=== PATIENT | female | born 1990 | race Caucasian/White ===

== ENCOUNTER 2020-04-20 02:34 | Inpatient (IN) | payer BC ==
[~2020-04-20] VITALS: Ht 157.5 cm; Wt 225.7 kg
[2020-04-20] MEDS ORDERED: LISINOPRIL10 MG PO (02:45)
[2020-04-20] MEDS ORDERED: LOPRESSOR25 MG PO (02:45)
[2020-04-20 03:14] LABS: BASOPHILS 0.1 % (0-2); EOSINOPHILS 0 % (0-7); HEMATOCRIT 33.9 % (36.0-48.0); HEMOGLOBIN 10.7 g/dL (12-16); IMMATURE GRANULOCYTES 0.3 % (0-5); MCH 28.5 pg (26.0-34.0); MCHC 31.6 g/dL (31.0-37.0); MCV 90.2 fL (80.0-100.0); MEAN PLATELET VOLUME 9.7 fL (7.4-10.4); NEUTROPHILS 94.6 % (40-80); PLATELET COUNT 164 10x3/uL (130-400); RBC 3.76 10x6/uL (4.00-5.40); RDW 14.2 % (11.5-14.5); WBC 10.2 10x3/uL (4.8-10.8)
[2020-04-20 03:22] LABS: ANION GAP 13.5 mmol/L (8-16); CARBON DIOXIDE 23.2 mmol/L (21.0-32.0); CREATININE - SERUM 1.2 mg/dL (0.6-1.3); POTASSIUM - SERUM 3.7 mmol/L (3.5-5.1)
[2020-04-20 03:23] LABS: APTT 30.4 SECONDS (22.8-39.4); INR 1.29 (0.85-1.17)
[2020-04-20 03:25] LABS: HCG SERUM NEGATIVE (NEGATIVE)
[2020-04-20 03:26] LABS: D-DIMER-QUANTITATIVE 2.62 ug/mLFEU (0.20-0.54)
[2020-04-20 03:39] LABS: ALBUMIN 3.1 g/dL (3.4-5.0); BILIRUBIN - TOTAL 1.36 mg/dL (0.2-1.3); PROTEIN - SERUM 6.7 g/dL (6.4-8.2); THYROID STIMULATING HORMONE 0.86 uIU/mL (0.36-3.74)
--- NOTE | 2020-04-20 04:30 | NUR ---
PT HAS 2+ PITTING EDEMA TO L LOWER LEG AND NON PITTING EDEMA TO R LOWER LEG
--- NOTE | 2020-04-20 05:00 | NUR ---
PT ABLE TO AMBULATE TO BATHROOM WITHOUT ASSISTANCE.
[2020-04-20 07:49] VITALS: BP 133/80; BMI 86.2
--- NOTE | 2020-04-20 08:00 | NUR ---
ASSESSMENT PER FLOWSHEET. PATIENT ORIENTATED TO ROOM. CALL LIGHT WITHIN REACH, BED LOW POSITION, DENIES ANY NEEDS AT THIS TIME.
[2020-04-20 09:16] VITALS: BP 126/70
[2020-04-20 13:17] VITALS: BP 117/59
--- NOTE | 2020-04-20 16:00 | NUR ---
INCENTIVE SPIROMETER TEACHING COMPLETE. PATIENT ABLE TO DEMONSTRATE. FALL PREVENTION MEASURES IN PLACE. BED IN LOW POSITION, CALL LIGHT IN REACH, PATIENT DENIES ANY NEEDS AT THIS TIME.
--- NOTE | 2020-04-20 16:13 | NUR ---
PATIENT IS UNABLE TO TOLLERATE SCD'S.
[2020-04-20 16:50] VITALS: BP 104/47
--- NOTE | 2020-04-20 18:03 | NUR ---
PATIENT VERY ANXIOUS BILATERAL IV TENDER, DCD PER PATIENT REQUEST. IV SITED TO RIGHT FOREARM X 1 STICK 20G. ASEPTIC TECH.
--- NOTE | 2020-04-20 18:21 | NUR ---
REMAINS WITHOUT CHANGE. CONT PLAN OF CARE
--- NOTE | 2020-04-20 19:31 | NUR ---
PATIENT RESTING IN BED WITH NO S/S OF DISTRESS. DENIES NEEDS AT THIS TIME. BED IN LOWEST POSITION AND CALL LIGHT WITHIN REACH. ENCOURAGED THE PATIENT TO CALL IF SHE HAS NEEDS. WILL CONTINUE TO MONITOR.
[2020-04-20 20:15] VITALS: BP 108/43
--- NOTE | 2020-04-20 21:29 | NUR ---
ADMINISTERED MEDS PER ORDERS. PATIENT DENIES OTHER NEEDS. WILL CONTINUE TO MONITOR.
[2020-04-21 01:11] VITALS: BP 115/49
[2020-04-21 04:35] VITALS: BP 136/56
[2020-04-21 06:51] LABS: BASOPHILS 0.1 % (0-2); EOSINOPHILS 0.2 % (0-7); HEMATOCRIT 30.4 % (36.0-48.0); HEMOGLOBIN 9.4 g/dL (12-16); IMMATURE GRANULOCYTES 0.5 % (0-5); LYMPHOCYTES 3.9 % (15-50); MCHC 30.9 g/dL (31.0-37.0); MCV 90.5 fL (80.0-100.0); MONOCYTES 3.5 % (2-11); NEUTROPHILS 91.8 % (40-80); PLATELET COUNT 169 10x3/uL (130-400); RBC 3.36 10x6/uL (4.00-5.40); RDW 14.8 % (11.5-14.5)
[2020-04-21 06:59] LABS: WBC 13.2 10x3/uL (4.8-10.8)
[2020-04-21 07:02] LABS: ANION GAP 9.9 mmol/L (8-16); CALCIUM 7.9 mg/dL (8.5-10.1); CARBON DIOXIDE 24.8 mmol/L (21.0-32.0); CREATININE - SERUM 1.1 mg/dL (0.6-1.3); MAGNESIUM - SERUM 1.7 mg/dL (1.8-2.4); PHOSPHOROUS 2.6 mg/dL (2.5-4.9); POTASSIUM - SERUM 3.7 mmol/L (3.5-5.1)
[2020-04-21 08:30] VITALS: BP 126/69
--- NOTE | 2020-04-21 08:55 | NUR ---
SHE IS ALERT, WALKING TO THE BATHROOM WITHOUT HELP. HER LEFT LOWER LEG HAS LYMPHEDEMA WITH REDNESS, AND SMALL BLITERS. THE RIGHT LEG HAS SOME REDNESS AROUND THE ANKLE AREA. I COLLECTED A URINE SPECIMEN FROM HER THIS MORNING. THE CALL LIGHT IS WITHIN REACH. DENIES ANY PAIN OR NEEDS AT THIS TIME.
[2020-04-21 09:35] LABS: BILIRUBIN NEGATIVE (NEGATIVE); GLUCOSE NEGATIVE (NEGATIVE); KETONE NEGATIVE (NEGATIVE); NITRITE NEGATIVE (NEGATIVE); UROBILINOGEN NORMAL (NORMAL)
[2020-04-21 09:42] LABS: BACTERIA FEW /hpf (NEGATIVE); EPITHELIAL CELLS 0-5 /hpf (0-5); RED CELLS - URINE 0-5 /hpf (0-5); WHITE CELLS - URINE 0-5 /hpf (NEGATIVE)
[2020-04-21 12:21] VITALS: BP 117/61
[2020-04-21 17:48] VITALS: BP 120/61
--- NOTE | 2020-04-21 19:30 | NUR ---
PATIENT RESTING IN BED WITH NO S/S OF DISTRESS AND DENIES NEEDS AT THIS TIME. BED IN LOWEST POSITION AND CALL LIGHT WITHIN REACH. ENCOURAGED THE PATIENT TO CALL IF SHE HAS NEEDS. WILL CONTINUE TO MONITOR.
[2020-04-21 20:08] VITALS: BP 107/41
[2020-04-22 04:00] VITALS: BP 120/65
[2020-04-22 05:20] LABS: BASOPHILS 0.1 % (0-2); EOSINOPHILS 0.5 % (0-7); HEMATOCRIT 29.4 % (36.0-48.0); HEMOGLOBIN 9.3 g/dL (12-16); IMMATURE GRANULOCYTES 0.5 % (0-5); LYMPHOCYTES 7.1 % (15-50); MCH 28.2 pg (26.0-34.0); MCHC 31.6 g/dL (31.0-37.0); MCV 89.1 fL (80.0-100.0); MEAN PLATELET VOLUME 10.6 fL (7.4-10.4); MONOCYTES 5.3 % (2-11); NEUTROPHILS 86.5 % (40-80); PLATELET COUNT 166 10x3/uL (130-400); RDW 14.7 % (11.5-14.5); WBC 12.2 10x3/uL (4.8-10.8)
[2020-04-22 05:35] LABS: CALC OSMOLALITY 272 mosm/kg (275-300); CALCIUM 8.1 mg/dL (8.5-10.1); CARBON DIOXIDE 25.7 mmol/L (21.0-32.0); CHLORIDE - SERUM 103 mmol/L (98-107); CREATININE - SERUM 0.9 mg/dL (0.6-1.3); GLUCOSE 104 mg/dL (74-106); MAGNESIUM - SERUM 1.9 mg/dL (1.8-2.4); PHOSPHOROUS 2.2 mg/dL (2.5-4.9); POTASSIUM - SERUM 3.6 mmol/L (3.5-5.1); SODIUM 135 mmol/L (136-145); UREA NITROGEN 22 mg/dL (7-18); eGFR NON AFRICAN AMERICAN 77 mL/min (90-120)
--- NOTE | 2020-04-22 07:35 | NUR ---
PT LYING IN BED, NO S/SX OF DISTRESS, IV IN RT FA INFILTRATED, PT STATED SHE IS A VERY HARD STICK AND HAS TO HAVE ABX, PLACED ORDER FOR VASCULAR ACCESS NURSE. ASSISTED PT WITH MOVING LEFT LEG OVER THIS IS DIFFICULT FOR PT TO DO ON HER OWN. LUNGS CTA, BOWEL SOUBDS HYPOACTIVE. PT STATED LAST BD WAS LAST NIGHT AND SMALL. NO OTHER NEEDS AT THIS TIME, CONTINUE WITH PLAN OF CARE
[2020-04-22 09:12] VITALS: BP 127/65
--- NOTE | 2020-04-22 10:36 | NUR ---
I have reviewed this patient and I concur with the Shift Assessment completed by the Licensed Practical Nurse today this shift.
--- NOTE | 2020-04-22 11:20 | NUR ---
LEFT LOWER LEG IS EDEMATOUS AND RED. VANC HAS BEEN ORDERED. RECOMMENDED KEEPING LEG ELEVATED. WOUND CARE MONITORING.
[2020-04-22 12:38] VITALS: BP 125/61
[2020-04-22 13:42] VITALS: BMI 84.2
[2020-04-22 16:55] VITALS: BP 120/54
--- NOTE | 2020-04-22 19:24 | NUR ---
ASSISTED PATIENT TO AND FROM BED PER HER REQUEST. PATIENT DENIES OTHER NEEDS AT THIS TIME. BED IN LOWEST POSITION AND CALL LIGHT WITHIN REACH. ENCOURAGED THE PATIENT TO CALL IF SHE HAS NEEDS. WILL CONTINUE TO MONITOR.
[2020-04-22 20:00] VITALS: BP 115/62
[2020-04-22 23:23] VITALS: BP 127/69
--- NOTE | 2020-04-23 | NUR ---
ADMINISTERED MEDS PER ORDERS. PATIENT DENIES OTHER NEEDS. WILL CONTINUE TO MONITOR.
[2020-04-23 04:00] VITALS: BP 121/60
[2020-04-23 05:59] LABS: BASOPHILS 0.1 % (0-2); EOSINOPHILS 0.8 % (0-7); HEMATOCRIT 28.2 % (36.0-48.0); HEMOGLOBIN 8.7 g/dL (12-16); IMMATURE GRANULOCYTES 1.7 % (0-5); LYMPHOCYTES 8.9 % (15-50); MCH 27.6 pg (26.0-34.0); MCHC 30.9 g/dL (31.0-37.0); MCV 89.5 fL (80.0-100.0); MONOCYTES 11.5 % (2-11); PLATELET COUNT 170 10x3/uL (130-400); RBC 3.15 10x6/uL (4.00-5.40); WBC 10.3 10x3/uL (4.8-10.8)
[2020-04-23 06:01] LABS: CALC OSMOLALITY 274 mosm/kg (275-300); CARBON DIOXIDE 25.5 mmol/L (21.0-32.0); CHLORIDE - SERUM 104 mmol/L (98-107); CREATININE - SERUM 0.8 mg/dL (0.6-1.3); GLUCOSE 91 mg/dL (74-106); MAGNESIUM - SERUM 2.1 mg/dL (1.8-2.4); PHOSPHOROUS 2.3 mg/dL (2.5-4.9); POTASSIUM - SERUM 3.5 mmol/L (3.5-5.1); SODIUM 137 mmol/L (136-145); eGFR NON AFRICAN AMERICAN 89 mL/min (90-120)
[2020-04-23 06:03] LABS: UREA NITROGEN 15 mg/dL (7-18)
--- NOTE | 2020-04-23 07:21 | NUR ---
PT LYING IN BED AWAKE WATCHING TELEVISION, NO S/SX OF DISTRESS, PT LEFT LEG RED AND SWOLLEN HAS SOME DRAINAGE TODAY, WILL CONTINUE TO MONITOR. NO NEEDS VOICED, CL IN REACH
[2020-04-23 09:01] VITALS: BP 130/69
--- NOTE | 2020-04-23 09:40 | NUR ---
PT UP WITH PHYSICAL THERAPY, REQUESTED PAIN MEDICATION, ADMINISTERED PRN PAIN MEDICATION VIA IV, NO OTHER ENEDS VOICED AT TIHS TIME, CL IN REACH BED IN LOWEST POSITION, CONTINUE WITH PLAN OF CARE
[2020-04-23 11:59] VITALS: BP 123/70
[2020-04-23 16:41] VITALS: BP 149/50
[2020-04-23 17:20] VITALS: BP 114/76
--- NOTE | 2020-04-23 17:54 | NUR ---
OT NOTE: PT SITTING IN CHAIR. PT COMPLETED BUE AROM EXERCISES. PT EASILY FATIGUED WITH MINIMAL EXERTION. PT COMPLETED SITTING BALANCE WITH CGA. PT COMPLETED FACE/HAND HYGIENE WITH SETUP. PT STATED SHE COOKS AT HOME AND HAS MORE ENERGY WHEN HOME. PT FAMILY MEMBER STATED SHE IS NOT VERY ACTIVE AT HOME. [phone] THANK YOU,EMILY JEWELL
--- NOTE | 2020-04-23 19:22 | NUR ---
I have reviewed this patient and I concur with the Shift Assessment completed by the Licensed Practical Nurse today this shift.
--- NOTE | 2020-04-23 19:30 | NUR ---
PT SITTING UP IN BED WITHOUT DISTRESS, AOX4. RIGHT UPPER ARM ML INFUSING NS @ 75. BLE SWELLING, LEFT MORE THAN RIGHT. LEFT LEG RED AND WARM TO TOUCH. PROPPED ON PILLOW. DENIES PAIN OR NEEDS AT THIS TIME. CL IN REACH, WILL CTM
[2020-04-23 20:00] VITALS: BP 107/48
[2020-04-24] VITALS: BP 120/63
--- NOTE | 2020-04-24 00:30 | NUR ---
PT ASSISTED UP TO BATHROOM AND BACK TO BED. GAVE TYLENOL FOR BURNING PAIN IN LEFT FOOT 01/25.
[2020-04-24 04:00] VITALS: BP 121/63
[2020-04-24 06:05] LABS: BASOPHILS 0.3 % (0-2); EOSINOPHILS 1.2 % (0-7); HEMATOCRIT 27.2 % (36.0-48.0); HEMOGLOBIN 8.5 g/dL (12-16); LYMPHOCYTES 10.1 % (15-50); MCH 27.7 pg (26.0-34.0); MCHC 31.3 g/dL (31.0-37.0); MCV 88.6 fL (80.0-100.0); MEAN PLATELET VOLUME 11.2 fL (7.4-10.4); MONOCYTES 10.8 % (2-11); NEUTROPHILS 70.6 % (40-80); PLATELET COUNT 190 10x3/uL (130-400); RBC 3.07 10x6/uL (4.00-5.40); RDW 15.3 % (11.5-14.5); WBC 11.8 10x3/uL (4.8-10.8)
[2020-04-24 06:17] LABS: CALC OSMOLALITY 272 mosm/kg (275-300); CALCIUM 8.1 mg/dL (8.5-10.1); CARBON DIOXIDE 25.3 mmol/L (21.0-32.0); CHLORIDE - SERUM 104 mmol/L (98-107); CREATININE - SERUM 0.7 mg/dL (0.6-1.3); GLUCOSE 94 mg/dL (74-106); MAGNESIUM - SERUM 2.2 mg/dL (1.8-2.4); PHOSPHOROUS 2.3 mg/dL (2.5-4.9); POTASSIUM - SERUM 3.5 mmol/L (3.5-5.1); SODIUM 137 mmol/L (136-145); eGFR NON AFRICAN AMERICAN > 90 mL/min (90-120)
[2020-04-24 06:18] LABS: UREA NITROGEN 11 mg/dL (7-18)
--- NOTE | 2020-04-24 07:52 | NUR ---
PT LYING IN BED ASLEEP, NO S/SX OF DISTRESS, PT LEFT LEG IS VERY RED AND SWOLLEN TODAY, HAS SOME DRAINAGFE ON INNER SIDE/ MIDLINE IN RET UPPER ARM PATENT, CDI, LUNGS CTA. NO NEEDS VOICED, CONTINUE WITH PLAN OF CARE
[2020-04-24 08:38] VITALS: BP 127/63
[2020-04-24 12:41] VITALS: BP 137/76
--- NOTE | 2020-04-24 14:08 | NUR ---
OT NOTE: PT VERY TEARFUL AT START OF SESSION.. STATES THAT SHE KNOWS IT IS GOING TO BE VERY PAINFUL. ATTEMPTED EOB SITTING ON OPPOSITE SIDE TODAY AND PT DID BETTER. CONT TO REQUIRE MAX ASSIST TO MOVE L LEG..HOWEVER, SHE IS ABLE TO USE GRAB BARS TO HELP IN MOVING REST OF BODY.. SITTING BALANCE GOOD; SIT TO STAND WITH MIN ASSIST X 2; AMB APPROX 5 FT FROM BED TO CHAIR WITH CGA; TRANSFER WITH CGA; TOLERATED SITTING UP IN CHAIR APPROX 30 MIN.. REPORTED BURNING TO BACK OF L LE; BACK TO BED WITH MAX ASSIST FOR L LE..ELEVATED L LEG ON PILLOWS.. CHRISTIANNE FARRAR, OTR/L [phone]
[2020-04-24 17:00] VITALS: BP 140/78
--- NOTE | 2020-04-24 17:23 | NUR ---
OT NOTE: PT COMPLETED SUPINE TO SIT WITH TOTAL A WITH LLE. PT REQUIRED CGA/SBA FOR SIT TO STAND . PT COMPLETED ADL MOB WITH HH A . PT REQUIRED TOTAL A TO FIDENCIO SOCKS. [phone] THANK YOU, EMILY JEWELL
--- NOTE | 2020-04-24 19:26 | NUR ---
I have reviewed this patient and I concur with the Shift Assessment completed by the Licensed Practical Nurse today this shift.
[2020-04-24 20:00] VITALS: BP 116/63
--- NOTE | 2020-04-24 20:00 | NUR ---
PT SITTING UP IN BED WITHOUT DISTRESS, AOX4. IV RIGHT UPPER ARM INFUSING NS @ 75. DENIES PAIN. REQUESTING MELATONIN TO HELP HER SLEEP. CALLED RODOLFO RODRIGUE[facility], ORDER RECIEVED FOR MELATONIN 6MG QHS.
[2020-04-24 21:55] VITALS: Ht 157.5 cm; Wt 225.7 kg
[2020-04-25] VITALS: BP 136/59
[2020-04-25 04:00] VITALS: BP 127/66
[2020-04-25 06:08] LABS: % SATURATION 15 % (15-55); IRON 26 ug/dl (35-150); TOTAL IRON BIND CAPACITY 170 ug/dl (260-445); UNSAT IRON BIND CAPACITY 144 ug/dl (150-375)
[2020-04-25 06:15] LABS: HEMATOCRIT 26.5 % (36.0-48.0); HEMOGLOBIN 8.4 g/dL (12-16); MCH 28.2 pg (26.0-34.0); MCHC 31.7 g/dL (31.0-37.0); MCV 88.9 fL (80.0-100.0); PLATELET COUNT 219 10x3/uL (130-400); RBC 2.98 10x6/uL (4.00-5.40); RDW 15.5 % (11.5-14.5)
[2020-04-25 06:22] LABS: WBC 15.7 10x3/uL (4.8-10.8)
[2020-04-25 06:33] LABS: CALC OSMOLALITY 269 mosm/kg (275-300); CALCIUM 7.8 mg/dL (8.5-10.1); CARBON DIOXIDE 26.3 mmol/L (21.0-32.0); CHLORIDE - SERUM 104 mmol/L (98-107); CREATININE - SERUM 0.6 mg/dL (0.6-1.3); FERRITIN 283 ng/mL (3-244); GLUCOSE 106 mg/dL (74-106); MAGNESIUM - SERUM 2.3 mg/dL (1.8-2.4); PHOSPHOROUS 2.3 mg/dL (2.5-4.9); POTASSIUM - SERUM 3.9 mmol/L (3.5-5.1); SODIUM 136 mmol/L (136-145); eGFR NON AFRICAN AMERICAN > 90 mL/min (90-120)
[2020-04-25 06:34] LABS: UREA NITROGEN 8 mg/dL (7-18)
[2020-04-25 08:00] VITALS: BP 126/70
[2020-04-25 10:40] LABS: ANISOCYTOSIS OCC; HYPOCHROMASIA OCC; LYMPHOCYTES 11 % (15-50); MONOCYTES 11 % (2-11); NEUTROPHILS 69 % (40-80); PLATELET ESTIMATE NORMAL
[2020-04-25 12:00] VITALS: BP 116/65
--- NOTE | 2020-04-25 13:34 | NUR ---
Nutrition follow-up: Diet: Low sodium PO intake ~75% of meals Labs reviewed Wt: 460# +BM Pt with good po intake at this time. RDN following.
--- NOTE | 2020-04-25 14:24 | NUR ---
OT NOTE: PT COMPLETED LUE POSITIONING WITH TOTAL A. PT COMPLETED FACE HYGIENE WITH SETUP. [phone] THANK YOU,EMILY JEWELL
[2020-04-25 16:00] VITALS: BP 134/68
--- NOTE | 2020-04-25 19:07 | MORECARE ---
CASE MANAGEMENT DISCHARGE SUMMARY PATIENT: SUMI MG UNIT: [id number] ADM DATE: 04/20/20 AGE: 29 : 88 SEX: F ROOM/BED: D.2222 AUTHOR: DAVIN SILVESTRE PHYSICIAN: REFERRING PHYSICIAN: TONY ODONNELL MD DATE OF SERVICE: 04/25/20 Discharge Plan Patient Name: SUMI MG Facility: [facility]:[place] : 1990 Planned Disposition: Anticipated Discharge Date: Discharge Date: Expected LOS: Initial Reviewer: [email or web address] Initial Review Date: 04/25/2020 Generated: 04/25/20 8:06 pm DCPIA - Discharge Planning Initial Assessment Updated by [email or web address]: Allison Loyd on 04/25/20 7:04 pm * Is the patient Alert and Oriented? Yes * PCP STANLEY SCHAFFER IN [place] * Pharmacy [facility] [place] * Preadmission Environment Home Alone * ADLs Independent * Equipment None * Community resources currently utilized None * Can the patient safely return to the preadmission environment? Yes * Has this patient been hospitalized within the prior 30 days at any hospital? No Patient Name: SUMI MG Page [phone] at 1907 All edits/amendments must be made on the electronic document DICTATION DATE: 04/25/201905 PAY PER CLICK STRATEGIST: BISHOP 04/25/201905 RPT#: [id number] DC DATE: STATUS: ADM IN [facility] [address] [place] [address] END OF REPORT
--- NOTE | 2020-04-25 19:13 | MORECARE ---
CASE MANAGEMENT DISCHARGE SUMMARY PATIENT: SUMI MG UNIT: [id number] ADM DATE: 04/20/20 AGE: 29 : 88 SEX: F ROOM/BED: D.2222 AUTHOR: DAVIN SILVESTRE PHYSICIAN: REFERRING PHYSICIAN: TONY ODONNELL MD DATE OF SERVICE: 04/25/20 Discharge Plan Patient Name: SUMI MG Facility: [facility]:[place] : 1990 Planned Disposition: Anticipated Discharge Date: Discharge Date: Expected LOS: Initial Reviewer: [email or web address] Initial Review Date: 04/25/2020 Generated: 04/25/20 8:13 pm Comments DCP- Discharge Planning Updated by [email or web address]: Allison Loyd on 04/25/20 6:[address] Patient Name: SUMI MG Admission Status: ER Accout number: [id number] Admission Date: 04-20-2020 : 1990 Admission Diagnosis:FEVER, UNSPECIFIED Attending: TONY ODONNELL Current LOS: 5 Anticipated DC Date: Planned Disposition: Primary Insurance: [employer] EXCHANGE Discharge Planning Comments: CM MET WITH PATIENT VIA PHONE AFTER OBTAINING VERBAL CONSENT AND EXPLAINING ROLE OF CASE MANAGEMENT. STATES SHE PLANS TO GO HOME WHEN DISCHARGED. STATES SHE LIVES ALONE BUT SHE HAS A FRIEND THAT MAY BE COMING TO STAY WITH HER FOR A WHILE. SHE DOES NOT NEED EQUIPMENT AND DOES NOT WANT HH AT THIS TIME. SHE STATES IF SHE DECIDES SHE NEEDS IT SHE WILL LET US KNOW OR CONTACT HER PCP. CM WILL FOLLOW AND ASSIST NEEDED WITH DC PLANNING/NEEDS. Sales And Customer Relations Rep: Allison Loyd DCPIA - Discharge Planning Initial Assessment Updated by [id number]: Allison Loyd on 04/25/20 7:04 pm * Is the patient Alert and Oriented? Yes * PCP STANLEY SCHAFFER IN [place] * Pharmacy [facility] IN [place] * Preadmission Environment Home Alone * ADLs Independent * Equipment None * Community resources currently utilized None * Can the patient safely return to the preadmission environment? Yes * Has this patient been hospitalized within the prior 30 days at any hospital? No Last DP export: 04/25/20 6:07 pm Patient Name: SUMI MG Page [id number] at 191 All edits/amendments must be made on the electronic document DICTATION DATE: 04/25/201912 MANAGER SUPPORT SERVICES: BISHOP 04/25/201912 RPT#: [id number] DC DATE: STATUS: ADM IN [facility] [address] [place] [address] END OF REPORT
[2020-04-25 20:00] VITALS: BP 143/75
[2020-04-26] VITALS: BP 151/71
[2020-04-26 04:00] VITALS: BP 146/81
[2020-04-26 07:58] LABS: ALBUMIN 1.9 g/dL (3.4-5.0); ALKALINE PHOSPHATASE 82 U/L (30-120); ALT (SGPT) 40 U/L (10-68); BILIRUBIN - TOTAL 0.82 mg/dL (0.2-1.3); CALC OSMOLALITY 273 mosm/kg (275-300); CALCIUM 7.2 mg/dL (8.5-10.1); CHLORIDE - SERUM 104 mmol/L (98-107); CREATININE - SERUM 0.6 mg/dL (0.6-1.3); GLUCOSE 95 mg/dL (74-106); POTASSIUM - SERUM 4.7 mmol/L (3.5-5.1); PROTEIN - SERUM 6.5 g/dL (6.4-8.2); SODIUM 138 mmol/L (136-145); UREA NITROGEN 8 mg/dL (7-18); eGFR NON AFRICAN AMERICAN > 90 mL/min (90-120)
[2020-04-26 07:59] LABS: HEMATOCRIT 27.7 % (36.0-48.0); HEMOGLOBIN 8.8 g/dL (12-16); MCHC 31.8 g/dL (31.0-37.0); MCV 88.2 fL (80.0-100.0); MEAN PLATELET VOLUME 11.4 fL (7.4-10.4); PLATELET COUNT 180 10x3/uL (130-400); RBC 3.14 10x6/uL (4.00-5.40); RDW 15.6 % (11.5-14.5); WBC 15.4 10x3/uL (4.8-10.8)
--- NOTE | 2020-04-26 08:00 | NUR ---
ASSESSMENT PER FLOW SHEET. PATIENT IS WITHOUT DISTRESS.SHE DIENIES PAIN AT PRESENT. CALL LIGHT IN REACH
[2020-04-26 08:35] LABS: EOSINOPHILS 1 % (0-7); LYMPHOCYTES 19 % (15-50); MONOCYTES 5 % (2-11); NEUTROPHILS 72 % (40-80); PLATELET ESTIMATE NORMAL
[2020-04-26 09:51] VITALS: BP 128/67
--- NOTE | 2020-04-26 14:41 | NUR ---
OT NOTE: PT COMPLETED ORAL HYGIENE WITH SETUP. PT COMPLETED FACE/HAND HYGIENE WITH SETUP. PT COMPLETED BUE AROM EXS TOLERATED. [phone] RENEE GARCIA COTA
[2020-04-26 14:57] VITALS: BP 135/68
--- NOTE | 2020-04-26 18:52 | NUR ---
TWO LARGE STOOLS THIS AFTERNONN. PAIN CONTROLLED WITH MEDS.REMAINS WITHOUT CHANGE.CONT PLAN OF CARE
[2020-04-26 20:00] VITALS: BP 128/71
--- NOTE | 2020-04-26 23:50 | NUR ---
ASSESSED AT THE BEGINNING OF THE SHIFT. PT IS ALERT AND ORIENTED, ABLE TO VERBALIZE NEEDS. AT 2100 PT'S MIDLINE WAS FOUND TO BE LEAKING AND WAS STOPPED. MULTIPLE ATTEMPTS WERE TAKEN TO OBTAIN A NEW IV WITHOUT LUCK AND THEN PT REFUSED TO HAVE ANYONE TRY AGAIN. WILL HAVE MD ADVISE IN THE AM.
--- NOTE | 2020-04-27 01:42 | NUR ---
CLEAN, DRY TOWELS GENTLY PLACED AROUND PTS LEGS PER DR. GEE ORDER. PT DENIES NEEDS AND REPORTS PAIN IS CONTROLLED. BED IS LOW AND CALL LIGHT IS WITHIN REACH.
[2020-04-27 05:25] LABS: BASOPHILS 0.1 % (0-2); EOSINOPHILS 1.6 % (0-7); HEMATOCRIT 27.2 % (36.0-48.0); HEMOGLOBIN 8.5 g/dL (12-16); IMMATURE GRANULOCYTES 10.5 % (0-5); MCH 28.1 pg (26.0-34.0); MCHC 31.3 g/dL (31.0-37.0); MCV 90.1 fL (80.0-100.0); MEAN PLATELET VOLUME 10.5 fL (7.4-10.4); NEUTROPHILS 69.8 % (40-80); RBC 3.02 10x6/uL (4.00-5.40); RDW 15.6 % (11.5-14.5); WBC 13.7 10x3/uL (4.8-10.8)
[2020-04-27 05:27] LABS: PLATELET COUNT 282 10x3/uL (130-400)
[2020-04-27 05:48] LABS: ALBUMIN 1.8 g/dL (3.4-5.0); ALKALINE PHOSPHATASE 73 U/L (30-120); ALT (SGPT) 58 U/L (10-68); BILIRUBIN - TOTAL 0.69 mg/dL (0.2-1.3); CALC OSMOLALITY 268 mosm/kg (275-300); CALCIUM 7.8 mg/dL (8.5-10.1); CHLORIDE - SERUM 103 mmol/L (98-107); CREATININE - SERUM 0.7 mg/dL (0.6-1.3); GLUCOSE 88 mg/dL (74-106); POTASSIUM - SERUM 4.2 mmol/L (3.5-5.1); PROTEIN - SERUM 6.9 g/dL (6.4-8.2); SODIUM 136 mmol/L (136-145); UREA NITROGEN 7 mg/dL (7-18); eGFR NON AFRICAN AMERICAN > 90 mL/min (90-120)
--- NOTE | 2020-04-27 08:24 | NUR ---
PT ALERT AND ORIENTED X4 UPON ENTERING. ADMINISTERED MEDICATION, NO DIFFICULTIES, BP 151/73. ASSESSMENT PERFORMED AT THIS TIME. DENIES ANY NEEDS. BED IN THE LOWEST POSITION, BED RAILS X3, CALL LIGHT WITHIN REACH. WILL CONTINUE TO MONITOR.
[2020-04-27 08:51] VITALS: BP 151/73
[2020-04-27 14:02] VITALS: BP 137/70
--- NOTE | 2020-04-27 14:23 | NUR ---
I have reviewed this patient and I concur with the Shift Assessment completed by the Licensed Practical Nurse today this shift.
--- NOTE | 2020-04-27 15:04 | NUR ---
RESTARTED IV ABX, FLUIDS AND VTC TECHNICIAN PER MICHAEL GRADY. TOLERATING WELL. GAVE PT A BED BATH. RESTING COMFORTABLY IN BED. DENIES ANY NEEDS. WILL CONTINUE TO MONITOR.
--- NOTE | 2020-04-27 16:47 | NUR ---
HUNG IV ABX. RESTING COMFORTABLY IN BED. DENIES ANY NEEDS. WILL CONTINUE TO MONITOR.
[2020-04-27 17:09] VITALS: BP 100/46
--- NOTE | 2020-04-27 18:07 | NUR ---
HUNG IV IRON. ASSISTED PT TO BATHROOM, CHANGED LINENS. COMFORTABLY BACK IN BED. PROVIDED WITH DRINK AND POPSICLE. DENIES ANY OTHER NEEDS. WILL CONTINUE TO MONITOR.
--- NOTE | 2020-04-27 18:25 | NUR ---
CHANGED DRESSING ON RIGHT UPPER ARM MIDLINE.
[2020-04-27 20:00] VITALS: BP 132/76
[2020-04-28] VITALS: BP 140/74
--- NOTE | 2020-04-28 01:00 | NUR ---
PTS MIDLINE IS LEAKING. THE DRESSING WAS WET AND IT WAS DRIPPING DOWN HER ARM. PER DAYSHIFT NURSE FROM YESTERDAY, MIDLINE NURSE EVALUATED PTS MIDLINE YESTERDAY WHEN IT WAS LEAKING AND SAID IT WAS OK TO USE. IT FLUSHES WITHOUT DIFFICULTY AND BLOOD RETURN NOTED. RESTARTED IV FLUIDS AND PLACED A PAD UNDER PTS ARM TO HELP KEEP HER SKIN AND LINENS DRY. WILL CONTINUE TO MONITOR.
[2020-04-28 04:00] VITALS: BP 145/75
[2020-04-28 05:48] LABS: BASOPHILS 0.3 % (0-2); EOSINOPHILS 1.8 % (0-7); HEMOGLOBIN 8.8 g/dL (12-16); IMMATURE GRANULOCYTES 6.5 % (0-5); MCHC 31.4 g/dL (31.0-37.0); MCV 92.4 fL (80.0-100.0); MONOCYTES 6.2 % (2-11); NEUTROPHILS 74.2 % (40-80); PLATELET COUNT 253 10x3/uL (130-400); RBC 3.03 10x6/uL (4.00-5.40); WBC 10.4 10x3/uL (4.8-10.8)
[2020-04-28 06:08] LABS: ALBUMIN 1.8 g/dL (3.4-5.0); ALKALINE PHOSPHATASE 65 U/L (30-120); ALT (SGPT) 75 U/L (10-68); CALC OSMOLALITY 267 mosm/kg (275-300); CALCIUM 7.8 mg/dL (8.5-10.1); CARBON DIOXIDE 27.6 mmol/L (21.0-32.0); CHLORIDE - SERUM 102 mmol/L (98-107); CREATININE - SERUM 0.8 mg/dL (0.6-1.3); GLUCOSE 95 mg/dL (74-106); POTASSIUM - SERUM 4.2 mmol/L (3.5-5.1); PROTEIN - SERUM 7.5 g/dL (6.4-8.2); SODIUM 135 mmol/L (136-145); UREA NITROGEN 6 mg/dL (7-18); eGFR NON AFRICAN AMERICAN 89 mL/min (90-120)
--- NOTE | 2020-04-28 06:50 | NUR ---
A&O RESTING IN BED WITH EYES OPEN. NO C/O PAIN, MORPHINE DUCK BILL OPERATOR MANAGING PAIN AT THIS TIME. UP WITH ASSIST, WALKER. RIGHT UPPER ARM MIDLINE, NS INFUSING @ 75ML/HR. SITE LEAKING, APPARENTLY HAS BEED LEAKING FOR DAYS. BLE EDEMA, REDNESS, SWELLING, AND DRAINAGE. DENIES ANY NEEDS AT THIS TIME. CALL LIGHT IN REACH. WILL CONTINUE TO MONITOR.
[2020-04-28 09:24] VITALS: BP 130/45
[2020-04-28 12:54] VITALS: BP 122/55
--- NOTE | 2020-04-28 13:37 | NUR ---
MIDLINE LEAKING OUT THE CORNER OF THE DRESSING. REINFORCED CORNER WITH 4X4 AND LARGE TEGADERM TO SEAL.
--- NOTE | 2020-04-28 16:40 | NUR ---
MIDLINE STILL LEAKING, EVEN AFTER THIS NURSE REINFORCED THE DRESSING. REMOVED OLD DRESSING VIA STERILE TECHNIQUE AND APPLIED NEW MIDLINE DRESSING VIA STERILE TECHNIQUE. TRIED TO DRAW BLOOD FROM MIDLINE, UNSUCCESSFUL. STOPPED FLUIDS AT THIS TIME AND WILL ONLY GIVE FLUIDS WITH IV ANTIBIOTICS UNTIL MIDLINE CAN BE ASSESS BY VASCULAR TOMORROW.
--- NOTE | 2020-04-28 16:42 | NUR ---
I have reviewed this patient and I concur with the Shift Assessment completed by the Licensed Practical Nurse today this shift.
[2020-04-28 17:45] VITALS: BP 138/67
--- NOTE | 2020-04-28 18:10 | NUR ---
A&O RESTING IN BED WITH EYES OPEN. MIDLINE STILL LEAKING, PUT IN VASCULAR ACCESS CONSULT FOR PICC PLACEMENT PER JOVANNA VASCULAR ACCESS NURSE. NO C/O PAIN. NO S/S ACUTE DISTRESS NOTED. DENIES ANY NEEDS AT THIS TIME. CALL LIGHT IN REACH. WILL CONTINUE TO MONITOR.
--- NOTE | 2020-04-28 19:30 | NUR ---
MIDLINE LEAKING IV ANTIBIOTICS. IV PUMPED TURNED OFF. OFFGOING NURSE REPORTS IT HAS BEEN LEAKING ALL DAY.
[2020-04-28 20:00] VITALS: BP 145/65
--- NOTE | 2020-04-28 20:00 | NUR ---
ASSISTED UP TO BR TO VOID. PT IS TEARFUL. SOB NOTED UPON MIN EXERTION. GROSS EDEMA TO BLE. LLE IS RED WITH BLISTERS OOZING YELLOW FLUID. AMB WITH WALKER WITH ASSIST. RATES PAIN IN RT UPPER ARM 3. MIDLINE HAS BEEN LEAKING. RESP IRREG. NO ACUTE DISTRESS.
[2020-04-29 04:00] VITALS: BP 145/80
[2020-04-29 05:35] LABS: HEMATOCRIT 27.5 % (36.0-48.0); HEMOGLOBIN 8.7 g/dL (12-16); LYMPHOCYTES 11.8 % (15-50); MCH 28.9 pg (26.0-34.0); MCHC 31.6 g/dL (31.0-37.0); MCV 91.4 fL (80.0-100.0); MEAN PLATELET VOLUME 9.8 fL (7.4-10.4); NEUTROPHILS 79.2 % (40-80); PLATELET COUNT 299 10x3/uL (130-400); RBC 3.01 10x6/uL (4.00-5.40); RDW 15.7 % (11.5-14.5); WBC 10.6 10x3/uL (4.8-10.8)
[2020-04-29 05:55] LABS: ALBUMIN 1.9 g/dL (3.4-5.0); ALKALINE PHOSPHATASE 59 U/L (30-120); BILIRUBIN - TOTAL 0.69 mg/dL (0.2-1.3); CALC OSMOLALITY 265 mosm/kg (275-300); CALCIUM 7.9 mg/dL (8.5-10.1); CARBON DIOXIDE 28.2 mmol/L (21.0-32.0); CHLORIDE - SERUM 102 mmol/L (98-107); CREATININE - SERUM 0.8 mg/dL (0.6-1.3); GLUCOSE 91 mg/dL (74-106); POTASSIUM - SERUM 4.3 mmol/L (3.5-5.1); PROTEIN - SERUM 7.5 g/dL (6.4-8.2); SODIUM 134 mmol/L (136-145); UREA NITROGEN 6 mg/dL (7-18); VANCOMYCIN - TROUGH 9.7 ug/mL (10.0-20.0); eGFR NON AFRICAN AMERICAN 89 mL/min (90-120)
[2020-04-29 05:56] LABS: ALT (SGPT) 97 U/L (10-68)
--- NOTE | 2020-04-29 07:15 | NUR ---
REC'D IN ROOM AWAKE AND ALERT. RESP EVEN AND UNLABORED WITH NO DISTRESS NOTED. CAN EXPRESS NEED AND WANTS. NO C/O NOTED OR VOICED. BLE REMAIN EXTREMELY SWOLLEN WITH OPEN AREA. ASSESSMENT COMPLETED. C/L IN REACH AT BEDSIDE.
[2020-04-29 09:08] VITALS: BP 135/75
--- NOTE | 2020-04-29 10:49 | NUR ---
I have reviewed this patient and I concur with the Shift Assessment completed by the Licensed Practical Nurse today this shift.
[2020-04-29 13:06] VITALS: BP 145/71
[2020-04-29 18:04] VITALS: BP 148/56
[2020-04-29 20:00] VITALS: BP 152/82
[2020-04-30 00:31] VITALS: BP 136/68
[2020-04-30 04:00] VITALS: BP 148/78
[2020-04-30 07:49] LABS: ALKALINE PHOSPHATASE 53 U/L (30-120); ALT (SGPT) 124 U/L (10-68); BILIRUBIN - TOTAL 0.67 mg/dL (0.2-1.3); CALC OSMOLALITY 266 mosm/kg (275-300); CALCIUM 7.6 mg/dL (8.5-10.1); CARBON DIOXIDE 29.9 mmol/L (21.0-32.0); CHLORIDE - SERUM 102 mmol/L (98-107); CREATININE - SERUM 0.8 mg/dL (0.6-1.3); GLUCOSE 92 mg/dL (74-106); POTASSIUM - SERUM 4.5 mmol/L (3.5-5.1); PROTEIN - SERUM 7.1 g/dL (6.4-8.2); SODIUM 135 mmol/L (136-145); UREA NITROGEN 5 mg/dL (7-18); eGFR NON AFRICAN AMERICAN 89 mL/min (90-120)
--- NOTE | 2020-04-30 08:15 | NUR ---
ALERT AND ORIENTED. LUNGS CLEAR BILATERALLY. HEART SOUNDS S1 AND S2 HEARD IN ALL ALVAREZ. BOWEL SOUNDS ACTIVE X 4. CELLULITIS TO LLE. DENIES NEEDS. BED LOW. CALL ANN AND PERSONAL ITEMS IN REACH. WILL CONTINUE TO MONITOR.
[2020-04-30 08:18] LABS: HEMATOCRIT 26.9 % (36.0-48.0); HEMOGLOBIN 8.4 g/dL (12-16); LYMPHOCYTES 14.2 % (15-50); MCH 28.6 pg (26.0-34.0); MCHC 31.2 g/dL (31.0-37.0); MCV 91.5 fL (80.0-100.0); MEAN PLATELET VOLUME 10.1 fL (7.4-10.4); NEUTROPHILS 78.4 % (40-80); PLATELET COUNT 279 10x3/uL (130-400); RBC 2.94 10x6/uL (4.00-5.40); RDW 15.5 % (11.5-14.5); WBC 8.2 10x3/uL (4.8-10.8)
--- NOTE | 2020-04-30 08:45 | NUR ---
SPOKE WITH MAURA VASCULAR ACCESS TO COME PLACE PICC. STATES WILL COME SEE PATIENT.
[2020-04-30 09:29] VITALS: BP 133/55
--- NOTE | 2020-04-30 11:00 | NUR ---
SPOKE WITH PHARMACY TO RETIME ZOSYN D/T PATIENT NOT HAVING LINE WHEN DUE. WILL HANG NOW.
[2020-04-30 13:00] VITALS: BP 135/66
--- NOTE | 2020-04-30 14:44 | NUR ---
OT NOTE: PT PERFORMED WELL TODAY. REPORTS THAT THE PAIN IS MUCH BETTER. BED MOB WITH MOD ASSIST FOR L LE, BUT INDEP WITH REMAINDER; SIT TO STAND X 5 TRIALS TO IMPROVE STRENGTH/ENDURANCE; AMBULATION IN ROOM WITH WALKER APPROX 8 FT.. REPORTED THAT PAIN WAS INCREASING DUE TO HER LEG NOT BEING ELEVATED; MOD ASSIST TO GET L LE BACK IN BED; MOD ASSIST FOR REPOSITIONING. CHRISTIANNE FARRAR, OTR/L [phone]
--- NOTE | 2020-04-30 15:07 | NUR ---
Nutrition follow-up: Pt receiving a low sodium diet PO intake ~75-100% of meals Labs reviewed Wt: 489# PO intake continues to be good at most meals RDN following.
--- NOTE | 2020-04-30 15:10 | NUR ---
RESTING IN BED. DENIES NEEDS. WILL CONTINUE TO MONITOR.
[2020-04-30 17:55] VITALS: BP 150/74
[2020-04-30 20:00] VITALS: BP 134/65
--- NOTE | 2020-04-30 20:00 | NUR ---
A&O X 4. PT UP TO BATHROOM WITH WALKER. ASSISTED WITH GETTING LEGS ON AND OFF BED, DENIES PAIN. CTM
[2020-05-01 04:00] VITALS: BP 142/72
--- NOTE | 2020-05-01 04:46 | NUR ---
I have reviewed this patient and I concur with the Shift Assessment completed by the Licensed Practical Nurse today this shift.
--- NOTE | 2020-05-01 04:47 | NUR ---
I have reviewed this patient and I concur with the Shift Assessment completed by the Licensed Practical Nurse today this shift.
[2020-05-01 06:03] LABS: PHOSPHOROUS 3.4 mg/dL (2.5-4.9)
--- NOTE | 2020-05-01 07:40 | NUR ---
ALERT AND ORIENTED. LUNGS CLEAR BILATERALLY. HEART SOUNDS S1 AND S2 HEARD IN ALL ALVAREZ. BOWEL SOUNDS ACTIVE X 4. MAGI PICC PATENT WITHOUT REDNESS. DENIES NEEDS. BED LOW. CALL ANN AND PERSONAL ITEMS IN REACH. WILL CONTINUE TO MONITOR.
[2020-05-01 08:30] VITALS: BP 130/75
--- NOTE | 2020-05-01 10:15 | MORECARE ---
CASE MANAGEMENT DISCHARGE SUMMARY PATIENT: SUMI MG UNIT: [id number] ADM DATE: 04/20/20 AGE: 29 : 86 SEX: F ROOM/BED: D.2222 AUTHOR: KONRAD,DOC PHYSICIAN: REFERRING PHYSICIAN: TONY ODONNELL MD DATE OF SERVICE: 05/01/20 Discharge Plan Patient Name: SUMI MG Facility: [facility]:[place] : 1990 Planned Disposition: Anticipated Discharge Date: Discharge Date: Expected LOS: Initial Reviewer: [id number] Initial Review Date: 04/25/2020 Generated: 05/01/20 11:15 am Comments DCP- Discharge Planning Updated by [id number]: Allison Loyd on 04/25/20 6:[address] Patient Name: SUMI MG Admission Status: ER Accout number: [id number] Admission Date: 04-20-2020 : 1990 Admission Diagnosis:FEVER, UNSPECIFIED Attending: TONY ODONNELL Current LOS: 5 Anticipated DC Date: Planned Disposition: Primary Insurance: [employer] EXCHANGE Discharge Planning Comments: CM MET WITH PATIENT VIA PHONE AFTER OBTAINING VERBAL CONSENT AND EXPLAINING ROLE OF CASE MANAGEMENT. STATES SHE PLANS TO GO HOME WHEN DISCHARGED. STATES SHE LIVES ALONE BUT SHE HAS A FRIEND THAT MAY BE COMING TO STAY WITH HER FOR A WHILE. SHE DOES NOT NEED EQUIPMENT AND DOES NOT WANT HH AT THIS TIME. SHE STATES IF SHE DECIDES SHE NEEDS IT SHE WILL LET US KNOW OR CONTACT HER PCP. CM WILL FOLLOW AND ASSIST NEEDED WITH DC PLANNING/NEEDS. Blanket Washer: Allison Loyd DCPIA - Discharge Planning Initial Assessment Updated by [email or web address]: Allison Loyd on 04/25/20 7:04 pm * Is the patient Alert and Oriented? Yes * PCP STANLEY SCHAFFER IN [place] * Pharmacy [facility] IN [place] * Preadmission Environment Home Alone * ADLs Independent * Equipment None * Community resources currently utilized None * Can the patient safely return to the preadmission environment? Yes * Has this patient been hospitalized within the prior 30 days at any hospital? No External Providers [facility] Next Contact Date: Service Request Date: Service Type: Resolution: Reviewer: Comments: External Provider: [facility] Next Contact Date: Service Request Date: Service Type: Resolution: Reviewer: Comments: [facility] Next Contact Date: Service Request Date: Service Type: Resolution: Reviewer: Comments: Coverage Notice Reviewer: [id number] Heather Loyd Notice Issued Date-Time: 05/01/2020 10:09 Notice Type: Patient Choice Letter Notice Delivered To: Patient Relationship to Patient: Department Coordinator Name: Delivery Method: HAND - Hand Delivered Aimee Days: Prior Verbal Notification: Recipient Understood Notice: Yes Recipient Signature: Yes Med Rec Note Co-signed by Attending: Coverage Notice Comment: [facility]. Last DP export: 04/25/20 6:13 pm Patient Name: SUMI MG Page 00016 at 1015 All edits/amendments must be made on the electronic document DICTATION DATE: 05/01/20 1015 FASHION INTERN: BISHOP 05/01/20 1015 RPT#: [id number] DC DATE: STATUS: ADM IN [facility] [address] [place] [address] END OF REPORT
--- NOTE | 2020-05-01 10:30 | MORECARE ---
CASE MANAGEMENT DISCHARGE SUMMARY PATIENT: SUMI MG UNIT: [id number] ADM DATE: 04/20/20 AGE: 29 : 86 SEX: F ROOM/BED: D.2222 AUTHOR: KONRAD,DOC PHYSICIAN: REFERRING PHYSICIAN: TONY ODONNELL MD DATE OF SERVICE: 05/01/20 Discharge Plan Patient Name: SUMI MG Facility: [facility]:[place] : 1990 Planned Disposition: Anticipated Discharge Date: Discharge Date: Expected LOS: Initial Reviewer: [email or web address] Initial Review Date: 04/25/2020 Generated: 05/01/20 11:30 am Comments DCP- Discharge Planning Updated by [email or web address]: Allison Loyd on 05/01/20 9:[address] Patient Name: SUMI MG Admission Status: ER Accout number: [id number] Admission Date: 04-20-2020 : 1990 Admission Diagnosis:FEVER, UNSPECIFIED Attending: TONY ODONNELL Current LOS: 11 Anticipated DC Date: Planned Disposition: Primary Insurance: [employer] EXCHANGE Discharge Planning Comments: CM MET WITH PATIENT REGARDING DC PLANNING/NEEDS. SHE WILL NEED HH, [facility] AND WALKER. KWABENA SIGNED FOR [facility] FOR HER WALKER. PATIENT STATES SHE IS HAVING SOME TYPE OF PROCEDURE THIS MORNING. I WILL GET THE DOCUMENTS FAXED OVER TO [facility]. CM TO FOLLOW AND ASSIST NEEDED. Entry Level Java Developer: Allison Loyd DCP- Discharge Planning Updated by [id number]: Allison Loyd on 04/25/20 6:[address] Patient Name: SUMI MG Admission Status: ER Accout number: [id number] Admission Date: 04-20-2020 : 1990 Admission Diagnosis:FEVER, UNSPECIFIED Attending: TONY ODONNELL Current LOS: 5 Anticipated DC Date: Planned Disposition: Primary Insurance: [employer] Discharge Planning Comments: CM MET WITH PATIENT VIA PHONE AFTER OBTAINING VERBAL CONSENT AND EXPLAINING ROLE OF CASE MANAGEMENT. STATES SHE PLANS TO GO HOME WHEN DISCHARGED. STATES SHE LIVES ALONE BUT SHE HAS A FRIEND THAT MAY BE COMING TO STAY WITH HER FOR A WHILE. SHE DOES NOT NEED EQUIPMENT AND DOES NOT WANT HH AT THIS TIME. SHE STATES IF SHE DECIDES SHE NEEDS IT SHE WILL LET US KNOW OR CONTACT HER PCP. CM WILL FOLLOW AND ASSIST NEEDED WITH DC PLANNING/NEEDS. Entry Level Java Developer: Allison Loyd DCPIA - Discharge Planning Initial Assessment Updated by [email or web address]: Allison Loyd on 04/25/20 7:04 pm * Is the patient Alert and Oriented? Yes * PCP STANLEY SCHAFFER IN [place] * [facility] [place] * Preadmission Environment Home Alone * ADLs Independent * Equipment None * Community resources currently utilized None * Can the patient safely return to the preadmission environment? Yes * Has this patient been hospitalized within the prior 30 days at any hospital? No Coverage Notice Reviewer: [id number] - Allison Loyd Notice Issued Date-Time: 05/01/2020 10:09 Notice Type: Patient Choice Letter Notice Delivered To: Patient Relationship to Patient: Circular Sawyer Helper Name: Delivery Method: HAND - Hand Delivered Aimee Days: Prior Verbal Notification: Recipient Understood Notice: Yes Recipient Signature: Yes Med Rec Note Co-signed by Attending: Coverage Notice Comment: [facility]. Last DP export: 05/01/20 9:15 a Patient Name: SUMI MG Page [phone] at 1030 All edits/amendments must be made on the electronic document DICTATION DATE: 05/01/20 1030 AUTOMOTIVE TECHNICIAN INSTRUCTOR: BISHOP 05/01/20 1030 RPT#: [id number] DC DATE: STATUS: ADM IN [facility] [address] [place] [address] END OF REPORT
--- NOTE | 2020-05-01 10:52 | NUR ---
DRSG CHANGED TO MAGI PICC.
[2020-05-01 12:00] VITALS: BP 124/69
--- NOTE | 2020-05-01 12:56 | NUR ---
RESTING IN BED. DENIES NEEDS. WILL CONTINUE TO MONITOR.
--- NOTE | 2020-05-01 14:42 | NUR ---
SPOKE WITH IR WHO STATES PATIENT DOES NOT NEED TO BE NPO. DIET RENEWED.
--- NOTE | 2020-05-01 16:07 | NUR ---
OT NOTE: PT COMPLETED SUPINE TO SIT WITH TOTAL A WITH LLE. PT COMPLETED SITTING AT EOB WITH SPV. PT COMPLETED SIT TO STAND WITH CGA. PT COMPLETED SIDE STEPPING WITH CGA. PT COMPLETED FACE AND HAND HYGIENE WITH SETUP. PT IS A FALL RISK SECONDARY TO LLE PAIN. PT, AT TIMES , EXPERIENCES LOSS OF BALANCE WITH LLE PAIN. [phone] THANK YOU,EMILY JEWELL
[2020-05-01 20:00] VITALS: BP 131/71
--- NOTE | 2020-05-01 22:00 | NUR ---
ENTERED ROOM IN RESPONSE TO CALL LIGHT. A&0 X 4. ASSISTED PT OOB TO USE RESTROOM WITH WALKER. APPEARING REDNESS NOTED TO BACK. BEDSCALED ZEROED FOR WEIGHING. PT, ALSO REQUESTING MORE SLEEP MEDICATION. SUGGESTED PRN BENADRYL TO CLEAR UP RASH TO BACK, IT SHOULD ALSO HELP HER SLEEP. PT CONCERNED IF IT WILL INTERACT WITH ANY OF HER CURRENT MEDICATIONS. INFORMED IT WAS ORDERED PRIMARILY FOR HER SKIN REDNESS AND SHE HAD ALREADY RECEIVED A DOSE ON 04/30. PT VERBALIZED UNDERSTANDING. CTM.
[2020-05-02 02:56] LABS: HEMATOCRIT 27.9 % (36.0-48.0); HEMOGLOBIN 8.7 g/dL (12-16); LYMPHOCYTES 9.2 % (15-50); MCH 28.4 pg (26.0-34.0); MCHC 31.2 g/dL (31.0-37.0); MCV 91.2 fL (80.0-100.0); MEAN PLATELET VOLUME 9.6 fL (7.4-10.4); NEUTROPHILS 84.2 % (40-80); PLATELET COUNT 231 10x3/uL (130-400); RBC 3.06 10x6/uL (4.00-5.40); RDW 15.5 % (11.5-14.5); WBC 8.5 10x3/uL (4.8-10.8)
--- NOTE | 2020-05-02 02:59 | NUR ---
I have reviewed this patient and I concur with the Shift Assessment completed by the Licensed Practical Nurse today this shift.
[2020-05-02 03:16] LABS: CALC OSMOLALITY 266 mosm/kg (275-300); CARBON DIOXIDE 25.6 mmol/L (21.0-32.0); CHLORIDE - SERUM 100 mmol/L (98-107); CREATININE - SERUM 0.7 mg/dL (0.6-1.3); GLUCOSE 117 mg/dL (74-106); MAGNESIUM - SERUM 1.9 mg/dL (1.8-2.4); PHOSPHOROUS 3.3 mg/dL (2.5-4.9); POTASSIUM - SERUM 4.4 mmol/L (3.5-5.1); SODIUM 134 mmol/L (136-145); UREA NITROGEN 6 mg/dL (7-18); eGFR NON AFRICAN AMERICAN > 90 mL/min (90-120)
[2020-05-02 04:00] VITALS: BP 149/71
--- NOTE | 2020-05-02 07:00 | NUR ---
PT IS RESTING IN BED WITH EYES OPEN. RESPIRATIONS ARE EVEN AND UNLABORED. PT IS AAO X 4. PT DENIES PRESENCE OF N/V AT THIS TIME. BLE EDEMA NOTED. LLE IS WEEPING. PT DENIES PRESENCE OF NUMBNESS/TINGLING TO BLE. BILATERAL PEDAL PULSES ARE PALP. BED IS IN THE LOWEST POSITION. CALL LIGHT AND BEDSIDE TABLE ARE WITHIN REACH. SIDE RAILS X 2. PT DENIES FURTHER NEEDS. WILL CONT TO MONITOR.
[2020-05-02 09:17] VITALS: BP 144/63
[2020-05-02 13:17] VITALS: BP 128/58
--- NOTE | 2020-05-02 13:50 | NUR ---
OT NOTE: PT DOING VERY WELL TODAY. CONT TO REQUIRE ASSIST WITH MOVING L LE OFF OF BED, BUT ABLE TO PERFORM REMAINDER OF BED MOB WITHOUT ASSIST; SIT TO STAND WITH SPV AND WALKER; PT ABLE TO TAKE APPROX 15 STEPS FORWARD AND 15 STEPS BACKWARDS ( DONE IN INCREMENTS OF 5 DUE LIMITED SPACE IN ROOM). PTS BALANCE AND ENDURANCE HAVE MUCH IMPROVED. EDUCATED ON UE/LE EXS THAT CAN BE PERFORMED IN BED. PT IS PERFORMING ALL OF HER GROOMING TASKS AND UPPER BODY ADLS WITHOUT ASSIST. CHRISTIANNE FARRAR, OTR/L [phone]
--- NOTE | 2020-05-02 16:32 | MORECARE ---
CASE MANAGEMENT DISCHARGE SUMMARY PATIENT: SUMI MG UNIT: [id number] ADM DATE: 04/20/20 AGE: 29 : 88 SEX: F ROOM/BED: D.2222 AUTHOR: KONRAD,DOC PHYSICIAN: REFERRING PHYSICIAN: TONY ODONNELL MD DATE OF SERVICE: 05/02/20 Discharge Plan Patient Name: SUMI MG Facility: [facility]:[place] : 1990 Planned Disposition: Anticipated Discharge Date: Discharge Date: Expected LOS: Initial Reviewer: [email or web address] Initial Review Date: 04/25/2020 Generated: 05/02/20 5:32 pm Comments DCP- Discharge Planning Updated by [email or web address]: Allison Loyd on 05/02/20 3:[address] Patient Name: SUMI MG Admission Status: ER Accout number: [id number] Admission Date: 04-20-2020 : 1990 Admission Diagnosis:FEVER, UNSPECIFIED Attending: TONY ODONNELL Current LOS: 12 Anticipated DC Date: Planned Disposition: Primary Insurance: [employer] EXCHANGE Discharge Planning Comments: REFERRALS FAXED TO [facility] , AND [facility] THE WALKER. WAITING CALL BACK FROM [facility] AFTER THEY RUN HER INSURANCE AND SEE WHEN THEY CAN START HER CARE. CM TO FOLLOW AND ASSIST NEEDED. Mental Health Clinician: Allison Loyd DCP- Discharge Planning Updated by [id number]: Allison Loyd on 05/01/20 9:[address] Patient Name: SUMI MG Admission Status: ER Accout number: [id number] Admission Date: 04-20-2020 : 1990 Admission Diagnosis:FEVER, UNSPECIFIED Attending: TONY ODONNELL Current LOS: 11 Anticipated DC Date: Planned Disposition: Primary Insurance: [employer] EXCHANGE Discharge Planning Comments: CM MET WITH PATIENT REGARDING DC PLANNING/NEEDS. SHE WILL NEED HH, [facility] AND WALKER. KWABENA SIGNED FOR [facility], [facility] AND [facility] FOR HER WALKER. PATIENT STATES SHE IS HAVING SOME TYPE OF PROCEDURE THIS MORNING. I WILL GET THE DOCUMENTS FAXED OVER TO [facility]. CM TO FOLLOW AND ASSIST NEEDED. Mental Health Clinician: Allison Loyd DCP- Discharge Planning Updated by [id number]: Allisoncarlotta Loyd on 04/25/20 6:[address] Patient Name: SUMI MG Admission Status: ER Accout number: [id number] Admission Date: 04-20-2020 : 1990 Admission Diagnosis:FEVER, UNSPECIFIED Attending: TONY ODONNELL Current LOS: 5 Anticipated DC Date: Planned Disposition: Primary Insurance: [email or web address] [facility] EXCHANGE Discharge Planning Comments: CM MET WITH PATIENT VIA PHONE AFTER OBTAINING VERBAL CONSENT AND EXPLAINING ROLE OF CASE MANAGEMENT. STATES SHE PLANS TO GO HOME WHEN DISCHARGED. STATES SHE LIVES ALONE BUT SHE HAS A FRIEND THAT MAY BE COMING TO STAY WITH HER FOR A WHILE. SHE DOES NOT NEED EQUIPMENT AND DOES NOT WANT HH AT THIS TIME. SHE STATES IF SHE DECIDES SHE NEEDS IT SHE WILL LET US KNOW OR CONTACT HER PCP. CM WILL FOLLOW AND ASSIST NEEDED WITH DC PLANNING/NEEDS. Mental Health Clinician: Allison Loyd DCPIA - Discharge Planning Initial Assessment Updated by [email or web address]: Allison Loyd on 04/25/20 7:04 pm * Is the patient Alert and Oriented? Yes * PCP [facility]ANLEY SCHAFFER IN [place] * Pharmacy [facility] [place] * Preadmission Environment Home Alone * ADLs Independent * Equipment None * Community resources currently utilized None * Can the patient safely return to the preadmission environment? Yes * Has this patient been hospitalized within the prior 30 days at any hospital? No Coverage Notice Reviewer: [id number] - Allisoncarlotta Loyd Notice Issued Date-Time: 05/01/2020 10:09 Notice Type: Patient Choice Letter Notice Delivered To: Patient Relationship to Patient: Railroad Watchman Name: Delivery Method: HAND - Hand Delivered Aimee Days: Prior Verbal Notification: Recipient Understood Notice: Yes Recipient Signature: Yes Med Rec Note Co-signed by Attending: Coverage Notice Comment: [facility], [facility] FIRST CHOICE. Last DP export: 05/01/20 9:30 a Patient Name: SUMI MG Page [id number] at 1632 All edits/amendments must be made on the electronic document DICTATION DATE: 05/02/20 1632 ALFALFA DEHYDRATOR OPERATOR: BISHOP 05/02/20 1632 RPT#: [id number] DC DATE: STATUS: ADM IN [facility] [address] [place] [address] END OF REPORT
[2020-05-02 17:31] VITALS: BP 117/62
--- NOTE | 2020-05-02 19:00 | NUR ---
ASSISTED PT TO THE BATHROOM. SHE NEEDS ASSISTANCE PICKING HER LEFT LEG UP SO IT DOES NOT DRAG ON THE BED. SHE STATES THAT THE MELATONIN DOES NOT HELP HER SLEEP. LET HER KNOW SHE HAS LUNESTA FOR SLEEP THAT SHE CAN HAVE NEEDED. SHE SAID SHE WILL CALL WHEN SHE IS READY FOR IT. ASSISTED HER BACK TO BED. SHE DENIES PAIN OR NEEDS. BED LOW AND CALL LIGHT IS WITHIN REACH.
--- NOTE | 2020-05-02 19:20 | NUR ---
OT NOTE: PT COMPLETED ORAL HYGIENE WITH SETUP. PT COMPLETED FACE AND HAND HYGIENE WITH SETUP. PT COMPLETED BUE AROM EXERCISES TOLERATED. [phone] THANK YOU,EMILY JEWELL
[2020-05-02 20:00] VITALS: BP 132/71
[2020-05-03 04:00] VITALS: BP 143/78
[2020-05-03 06:47] LABS: CALC OSMOLALITY 272 mosm/kg (275-300); CARBON DIOXIDE 29.2 mmol/L (21.0-32.0); CHLORIDE - SERUM 103 mmol/L (98-107); CREATININE - SERUM 0.7 mg/dL (0.6-1.3); GLUCOSE 97 mg/dL (74-106); MAGNESIUM - SERUM 1.9 mg/dL (1.8-2.4); PHOSPHOROUS 3.6 mg/dL (2.5-4.9); POTASSIUM - SERUM 3.9 mmol/L (3.5-5.1); SODIUM 137 mmol/L (136-145); eGFR NON AFRICAN AMERICAN > 90 mL/min (90-120)
[2020-05-03 06:48] LABS: UREA NITROGEN 9 mg/dL (7-18)
[2020-05-03 07:43] LABS: HEMATOCRIT 26.9 % (36.0-48.0); HEMOGLOBIN 8.4 g/dL (12-16); LYMPHOCYTES 17.4 % (15-50); MCHC 31.2 g/dL (31.0-37.0); MCV 92.8 fL (80.0-100.0); MEAN PLATELET VOLUME 9.9 fL (7.4-10.4); NEUTROPHILS 70.6 % (40-80); PLATELET COUNT 255 10x3/uL (130-400); RDW 16.3 % (11.5-14.5); WBC 6.5 10x3/uL (4.8-10.8)
--- NOTE | 2020-05-03 08:26 | MORECARE ---
CASE MANAGEMENT DISCHARGE SUMMARY PATIENT: SUMI MG UNIT: [id number] ADM DATE: 04/20/20 AGE: 29 : 88 SEX: F ROOM/BED: D.2222 AUTHOR: KONRAD,DOC PHYSICIAN: REFERRING PHYSICIAN: TONY ODONNELL MD DATE OF SERVICE: 05/03/20 Discharge Plan Patient Name: SUMI MG Facility: [facility]:[place] : 1990 Planned Disposition: Anticipated Discharge Date: Discharge Date: Expected LOS: Initial Reviewer: [id number] Initial Review Date: 04/25/2020 Generated: 05/03/20 9:25 am DCP- Discharge Planning Updated by [email or web address]: Allison Rach on 05/02/20 3:[address] Patient Name: SUMI MG Admission Status: ER Accout number: [id number] Admission Date: 04-20-2020 : 1990 Admission Diagnosis:FEVER, UNSPECIFIED Attending: TONY ODONNELL Current LOS: 12 Anticipated DC Date: Planned Disposition: Primary Insurance: [employer] EXCHANGE Discharge Planning Comments: REFERRALS FAXED TO [facility] , AND [facility] THE WALK[facility]. WAITING CALL BACK FROM [facility] AFTER THEY RUN HER INSURANCE AND SEE WHEN THEY CAN START HER CARE. CM TO FOLLOW AND ASSIST NEEDED. Hiv Counselor: Allison Loyd DCP- Discharge Planning Updated by [id number]: Allison Loyd on 05/01/20 9:[address] Patient Name: SUMI MG Admission Status: ER Accout number: [id number] Admission Date: 04-20-2020 : 1990 Admission Diagnosis:FEVER, UNSPECIFIED Attending: TONY ODONNELL Current LOS: 11 Anticipated DC Date: Planned Disposition: Primary Insurance: [employer] EXCHANGE Discharge Planning Comments: CM MET WITH PATIENT REGARDING DC PLANNING/NEEDS. SHE WILL NEED HH, [facility] AND WALKER. KWABENA SIGNED FOR [facility], [facility] AND [facility] FOR HER WALKER. PATIENT STATES SHE IS HAVING SOME TYPE OF PROCEDURE THIS MORNING. I WILL GET THE DOCUMENTS FAXED OVER TO [facility]. CM TO FOLLOW AND ASSIST NEEDED. Hiv Counselor: Allison Loyd DCP- Discharge Planning Updated by [id number]: Allison Loyd on 04/25/20 6:[address] Patient Name: SUMI MG Admission Status: ER Accout number: [id number] Admission Date: 04-20-2020 : 1990 Admission Diagnosis:FEVER, UNSPECIFIED Attending: TONY ODONNELL Current LOS: 5 Anticipated DC Date: Planned Disposition: Primary Insurance: [employer] [facility] EXCHANGE Discharge Planning Comments: CM MET WITH PATIENT VIA PHONE AFTER OBTAINING VERBAL CONSENT AND EXPLAINING ROLE OF CASE MANAGEMENT. STATES SHE PLANS TO GO HOME WHEN DISCHARGED. STATES SHE LIVES ALONE BUT SHE HAS A FRIEND THAT MAY BE COMING TO STAY WITH HER FOR A WHILE. SHE DOES NOT NEED EQUIPMENT AND DOES NOT WANT HH AT THIS TIME. SHE STATES IF SHE DECIDES SHE NEEDS IT SHE WILL LET US KNOW OR CONTACT HER PCP. CM WILL FOLLOW AND ASSIST NEEDED WITH DC PLANNING/NEEDS. Hiv Counselor: Allison Loyd DCPIA - Discharge Planning Initial Assessment Updated by [id number]: Allison Rach on 04/25/20 7:04 pm * Is the patient Alert and Oriented? Yes * PCP [facility] SCHAFFER IN [place] * Pharmacy [facility] [place] * Preadmission Environment Home Alone * ADLs Independent * Equipment None * Community resources currently utilized None * Can the patient safely return to the preadmission environment? Yes * Has this patient been hospitalized within the prior 30 days at any hospital? No External Providers External Provider: [facility] Next Contact Date: Service Request Date: Service Type: Resolution: Reviewer: Comments: Coverage Notice Reviewer: [id number] - Allison Rach Notice Issued Date-Time: 05/01/2020 10:09 Notice Type: Patient Choice Letter Notice Delivered To: Patient Relationship to Patient: Cutter Down Name: Delivery Method: HAND - Hand Delivered Aimee Days: Prior Verbal Notification: Recipient Understood Notice: Yes Recipient Signature: Yes Med Rec Note Co-signed by Attending: Coverage Notice Comment: [facility], [facility] FIRST CHOICE. Last DP export: 05/02/20 3:32 p Patient Name: SUMI MG Page [id number] at 0826 All edits/amendments must be made on the electronic document DICTATION DATE: 05/03/20824 SOCIAL SERVICES TECHNICIAN: DM 05/03/20824 RPT#: [id number] DC DATE: STATUS: ADM IN [facility] [address] [place] [address] END OF REPORT
[2020-05-03 08:30] VITALS: BP 127/63
--- NOTE | 2020-05-03 10:33 | NUR ---
OT NOTE: PT PERFORMED VERY WELL TODAY. IMPROVEMENT NOTED WITH MOVING L LE ON AND OFF BED.. CONTINUES TO REQUIRE ASSIST BUT ONLY MOD/MIN ASSIST TODAY. PT PERFORMING SIT TO STAND WITHOUT ASSIST AND WITH USE OF WALKER. PTS NEW WALKER WAS DELIVERED TO ROOM AND PT WAS AGREEABLE TO AMB INTO HALLWAY TODAY. SHE DID VERY WELL GOING APPROX 60 FT WITH SBA.. NO LOB OR SOB NOTED. PT CONTINUES TO BE ABLE TO PERFORM ALL GROOMING AND UPPER BODY ACT, HOWEVER, DOES REQUIRE ASSIST WITH TOILET HYGIENE TO DO A THOROUGH JOB IN CLEANING PERINEAL AREA. CHRISTIANNE FARRAR, OTR/L [phone]
[2020-05-03] MEDS ORDERED: TEFLARO 600 MG600 M1 IV (10:36)
[2020-05-03] MEDS ORDERED: VIBRAMYCIN 100100 MG PO (10:36)
[2020-05-03] MEDS ORDERED: DIFLUCAN100 MG PO (10:37)
[2020-05-03] MEDS ORDERED: COLACE100 MG PO (10:38)
[2020-05-03] MEDS ORDERED: ZOFRAN4 MG PO (10:41)
[2020-05-03 12:00] VITALS: BP 124/61
--- NOTE | 2020-05-03 13:48 | MORECARE ---
CASE MANAGEMENT DISCHARGE SUMMARY PATIENT: SUMI MG UNIT: [id number] ADM DATE: 04/20/20 AGE: 29 : 88 SEX: F ROOM/BED: D.2222 AUTHOR: KONRAD,DOC PHYSICIAN: REFERRING PHYSICIAN: TONY ODONNELL MD DATE OF SERVICE: 05/03/20 Discharge Plan Patient Name: SUMI MG Facility: [facility]:[place] : 1990 Planned Disposition: Anticipated Discharge Date: Discharge Date: Expected LOS: Initial Reviewer: [email or web address] Initial Review Date: 04/25/2020 Generated: 05/03/20 2:47 pm DCP- Discharge Planning Updated by [email or web address]: Allison Rach on 05/02/20 3:[address] Patient Name: SUMI MG Admission Status: ER Accout number: [id number] Admission Date: 04-20-2020 : 1990 Admission Diagnosis:FEVER, UNSPECIFIED Attending: TONY ODONNELL Current LOS: 12 Anticipated DC Date: Planned Disposition: Primary Insurance: [employer] EXCHANGE Discharge Planning Comments: REFERRALS FAXED TO [facility] , AND [facility] THE WALK[facility]. WAITING CALL BACK FROM [facility] AFTER THEY RUN HER INSURANCE AND SEE WHEN THEY CAN START HER CARE. CM TO FOLLOW AND ASSIST NEEDED. Granulating Blender: Allison Loyd DCP- Discharge Planning Updated by [email or web address]: Allison Rach on 05/01/20 9:[address] Patient Name: SUMI MG Admission Status: ER Accout number: [id number] Admission Date: 04-20-2020 : 1990 Admission Diagnosis:FEVER, UNSPECIFIED Attending: TONY ODONNELL Current LOS: 11 Anticipated DC Date: Planned Disposition: Primary Insurance: [employer] EXCHANGE Discharge Planning Comments: CM MET WITH PATIENT REGARDING DC PLANNING/NEEDS. SHE WILL NEED HH, [facility] AND WALKER. KWABENA SIGNED FOR [facility] AND [facility] FOR HER WALKER. PATIENT STATES SHE IS HAVING SOME TYPE OF PROCEDURE THIS MORNING. I WILL GET THE DOCUMENTS FAXED OVER TO [facility]. CM TO FOLLOW AND ASSIST NEEDED. Granulating Blender: Allison Loyd DCP- Discharge Planning Updated by [id number]: Allison Rach on 04/25/20 6:[address] Patient Name: SUMI MG Admission Status: ER Accout number: [id number] Admission Date: 04-20-2020 : 1990 Admission Diagnosis:FEVER, UNSPECIFIED Attending: TONY ODONNELL Current LOS: 5 Anticipated DC Date: Planned Disposition: Primary Insurance: [employer] [facility] EXCHANGE Discharge Planning Comments: CM MET WITH PATIENT VIA PHONE AFTER OBTAINING VERBAL CONSENT AND EXPLAINING ROLE OF CASE MANAGEMENT. STATES SHE PLANS TO GO HOME WHEN DISCHARGED. STATES SHE LIVES ALONE BUT SHE HAS A FRIEND THAT MAY BE COMING TO STAY WITH HER FOR A WHILE. SHE DOES NOT NEED EQUIPMENT AND DOES NOT WANT HH AT THIS TIME. SHE STATES IF SHE DECIDES SHE NEEDS IT SHE WILL LET US KNOW OR CONTACT HER PCP. CM WILL FOLLOW AND ASSIST NEEDED WITH DC PLANNING/NEEDS. Granulating Blender: Allison Loyd DCPIA - Discharge Planning Initial Assessment Updated by [email or web address]: Allisoncarlotta Loyd on 04/25/20 7:04 pm * Is the patient Alert and Oriented? Yes * PCP [facility] SCHAFFER IN [place] * Pharmacy [facility] [place] * Preadmission Environment Home Alone * ADLs Independent * Equipment None * Community resources currently utilized None * Can the patient safely return to the preadmission environment? Yes * Has this patient been hospitalized within the prior 30 days at any hospital? No External Providers External Provider: [facility] Next Contact Date: Service Request Date: Service Type: Resolution: Reviewer: Comments: Coverage Notice Reviewer: [id number] - Allisoncarlotta Loyd Notice Issued Date-Time: 05/01/2020 10:09 Notice Type: Patient Choice Letter Notice Delivered To: Patient Relationship to Patient: Banking Services Clerk Name: Delivery Method: HAND - Hand Delivered Aimee Days: Prior Verbal Notification: Recipient Understood Notice: Yes Recipient Signature: Yes Med Rec Note Co-signed by Attending: Coverage Notice Comment: [facility], [facility] FIRST CHOICE. Last DP export: 05/03/20 7:26 a Patient Name: SUMI MG Page [phone] at 1348 All edits/amendments must be made on the electronic document DICTATION DATE: 05/03/20 134 PROJ MGR: BISHOP 05/03/20 134 RPT#: [id number] DC DATE: STATUS: ADM IN [facility] [address] [place] [address] END OF REPORT
--- NOTE | 2020-05-03 13:57 | MORECARE ---
CASE MANAGEMENT DISCHARGE SUMMARY PATIENT: SUMI MG UNIT: [id number] ADM DATE: 04/20/20 AGE: 29 : 86 SEX: F ROOM/BED: D.2222 AUTHOR: KONRAD,DOC PHYSICIAN: REFERRING PHYSICIAN: TONY ODONNELL MD DATE OF SERVICE: 05/03/20 Discharge Plan Patient Name: SUMI MG Facility: [facility]:[place] : 1990 Planned Disposition: Anticipated Discharge Date: Discharge Date: Expected LOS: Initial Reviewer: [id number] Initial Review Date: 04/25/2020 Generated: 05/03/20 2:57 pm Comments DCP- Discharge Planning Updated by [id number]: Allison Loyd on 05/03/20 12:[address] Patient Name: SUMI MG Admission Status: ER Accout number: [id number] Admission Date: 04-20-2020 : 1990 Admission Diagnosis:FEVER, UNSPECIFIED Attending: TONY ODONNELL Current LOS: 13 Anticipated DC Date: Planned Disposition: Primary Insurance: [employer] EXCHANGE Discharge Planning Comments: [facility] WILL SEE PATIENT IN HER ROOM BEFORE 3PM FOR TEACHING. [facility] IS SEEING PATIENT TOMORROW. [facility] HAS DELIVERED THE WALKER. PATIENT RIDE WILL BE HERE APPROX 3PM TO HEALTHCARE CUSTOMER SERVICE FOR DISCHARGE. Livestock Handler: Allison Loyd DCP- Discharge Planning Updated by [email or web address]: Allison Loyd on 05/02/20 3:[address] Patient Name: SUMI MG Admission Status: ER Accout number: [id number] Admission Date: 04-20-2020 : 1990 Admission Diagnosis:FEVER, UNSPECIFIED Attending: TONY ODONNELL Current LOS: 12 Anticipated DC Date: Planned Disposition: Primary Insurance: [employer] EXCH[employer] Discharge Planning Comments: REFERRALS FAXED TO [facility], [facility] , AND [facility] THE WALK[facility]. WAITING CALL BACK FROM [facility] AFTER THEY RUN HER INSURANCE AND SEE WHEN THEY CAN START HER CARE. CM TO FOLLOW AND ASSIST NEEDED. Livestock Handler: Allison Loyd DCP- Discharge Planning Updated by [email or web address]: Allison Loyd on 05/01/20 9:[address] Patient Name: SUMI MG Admission Status: ER Accout number: [id number] Admission Date: 04-20-2020 : 1990 Admission Diagnosis:FEVER, UNSPECIFIED Attending: TONY ODONNELL Current LOS: 11 Anticipated DC Date: Planned Disposition: Primary Insurance: [employer] EXCHANGE Discharge Planning Comments: CM MET WITH PATIENT REGARDING DC PLANNING/NEEDS. SHE WILL NEED HH, [facility] AND WALKER. KWABENA SIGNED FOR [facility], [facility] AND [facility] FOR HER WALKER. PATIENT STATES SHE IS HAVING SOME TYPE OF PROCEDURE THIS MORNING. I WILL GET THE DOCUMENTS FAXED OVER TO [facility]. CM TO FOLLOW AND ASSIST NEEDED. Livestock Handler: Allison Loyd DCP- Discharge Planning Updated by [id number]: Allison Loyd on 04/25/20 6:[address] Patient Name: SUMI MG Admission Status: ER Accout number: [id number] Admission Date: 04-20-2020 : 1990 Admission Diagnosis:FEVER, UNSPECIFIED Attending: TONY ODONNELL Current LOS: 5 Anticipated DC Date: Planned Disposition: Primary Insurance: [employer] EXCHANGE Discharge Planning Comments: CM MET WITH PATIENT VIA PHONE AFTER OBTAINING VERBAL CONSENT AND EXPLAINING ROLE OF CASE MANAGEMENT. STATES SHE PLANS TO GO HOME WHEN DISCHARGED. STATES SHE LIVES ALONE BUT SHE HAS A FRIEND THAT MAY BE COMING TO STAY WITH HER FOR A WHILE. SHE DOES NOT NEED EQUIPMENT AND DOES NOT WANT HH AT THIS TIME. SHE STATES IF SHE DECIDES SHE NEEDS IT SHE WILL LET US KNOW OR CONTACT HER PCP. CM WILL FOLLOW AND ASSIST NEEDED WITH DC PLANNING/NEEDS. Livestock Handler: Allison Loyd DCPIA - Discharge Planning Initial Assessment Updated by [email or web address]: Allison Loyd on 04/25/20 7:04 pm * Is the patient Alert and Oriented? Yes * PCP [facility]LEY SCHAFFER IN [place] * Pharmacy [facility] [place] * Preadmission Environment Home Alone * ADLs Independent * Equipment None * Community resources currently utilized None * Can the patient safely return to the preadmission environment? Yes * Has this patient been hospitalized within the prior 30 days at any hospital? No Coverage Notice Reviewer: [id number] - Allison Loyd Notice Issued Date-Time: 05/01/2020 10:09 Notice Type: Patient Choice Letter Notice Delivered To: Patient Relationship to Patient: District Traffic Chief Name: Delivery Method: HAND - Hand Delivered Aimee Days: Prior Verbal Notification: Recipient Understood Notice: Yes Recipient Signature: Yes Med Rec Note Co-signed by Attending: Coverage Notice Comment: [facility], [facility] FIRST CHOICE. Last DP export: 05/03/20 12:48 p Patient Name: SUMI MG Page 15848 at 1357 All edits/amendments must be made on the electronic document DICTATION DATE: 05/03/20 1358 BATTERYMAN: BISHOP 05/03/20 1357 RPT#: [id number] DC DATE: STATUS: ADM IN [facility] [address] [place] [address] END OF REPORT
--- NOTE | 2020-05-03 14:21 | NUR ---
DISCHARGE EDUCATION PROVIDED BOTH WRITTEN AND VERBAL. VERBALIZED UNDERSTANDING. DENIES FURTHER QUESTIONS. WAITING [facility] TO COME PROVIDE EDUCATION AND RIDE TO COME FROM [place].
--- NOTE | 2020-05-03 17:10 | NUR ---
OT NOTE: PT COMPLETED BUE AROM EXS. PT COMPLETED FACE/HAND HYGIENE WITH SETUP. PT COMPLETED ORAL CARE WITH SETUP. [phone] THANK YOU,EMILY JEWELL
--- NOTE | 2020-05-03 17:23 | NUR ---
PATIENT DC HOME WITH ALL BELONGINGS.
--- NOTE | 2020-05-04 08:43 | MORECARE ---
CASE MANAGEMENT DISCHARGE SUMMARY PATIENT: SUMI MG UNIT: [id number] ADM DATE: 04/20/20 AGE: 29 : 86 SEX: F ROOM/BED: D.2222 AUTHOR: [place] PHYSICIAN: REFERRING PHYSICIAN: TONY ODONNELL MD DATE OF SERVICE: 05/04/20 Discharge Plan Patient Name: SUMI MG Facility: [facility]:[place] : 1990 Planned Disposition: Anticipated Discharge Date: Discharge Date: 05/03/2020 Expected LOS: Initial Reviewer: [id number] Initial Review Date: 04/25/2020 Generated: 05/04/20 9:42 am Comments DCP- Discharge Planning Updated by [email or web address]: Allison Loyd on 05/03/20 12:[address] Patient Name: SUMI MG Admission Status: ER Accout number: [id number] Admission Date: 04-20-2020 : 1990 Admission Diagnosis:FEVER, UNSPECIFIED Attending: TONY ODONNELL Current LOS: 13 Anticipated DC Date: Planned Disposition: Primary Insurance: [employer] EXCH[employer] Discharge Planning Comments: [facility] WILL SEE PATIENT IN HER ROOM BEFORE 3PM FOR TEACHING. [facility] IS SEEING PATIENT TOMORROW. [facility] HAS DELIVERED THE WALKER. PATIENT RIDE WILL BE HERE APPROX 3PM TO TABULATING MACHINE MECHANIC FOR DISCHARGE. Department Administrator: Allison Loyd DCP- Discharge Planning Updated by [email or web address]: Allison Loyd on 05/02/20 3:[address] Patient Name: SUMI MG Admission Status: ER Accout number: [id number] Admission Date: 04-20-2020 : 1990 Admission Diagnosis:FEVER, UNSPECIFIED Attending: TONY ODONNELL Current LOS: 12 Anticipated DC Date: Planned Disposition: Primary Insurance: [employer] Discharge Planning Comments: REFERRALS FAXED TO [facility] , AND [facility] FOR THE WALKER. WAITING CALL BACK FROM [facility] AFTER THEY RUN HER INSURANCE AND SEE WHEN THEY CAN START HER CARE. CM TO FOLLOW AND ASSIST NEEDED. Department Administrator: Allison Loyd DCP- Discharge Planning Updated by [email or web address]: Allison Loyd on 05/01/20 9:[address] Patient Name: SUMI MG Admission Status: ER Accout number: [id number] Admission Date: 04-20-2020 : 1990 Admission Diagnosis:FEVER, UNSPECIFIED Attending: TONY ODONNELL Current LOS: 11 Anticipated DC Date: Planned Disposition: Primary Insurance: [employer] EXCHANGE Discharge Planning Comments: CM MET WITH PATIENT REGARDING DC PLANNING/NEEDS. SHE WILL NEED HH, [facility] AND WALKER. [place] SIGNED FOR [facility] FOR HER WALKER. PATIENT STATES SHE IS HAVING SOME TYPE OF PROCEDURE THIS MORNING. I WILL GET THE DOCUMENTS FAXED OVER TO [facility]. CM TO FOLLOW AND ASSIST NEEDED. Department Administrator: Allison Loyd DCP- Discharge Planning Updated by [email or web address]: Allison Loyd on 04/25/20 6:[address] Patient Name: SUMI MG Admission Status: ER Accout number: [id number] Admission Date: 04-20-2020 : 1990 Admission Diagnosis:FEVER, UNSPECIFIED Attending: TONY ODONNELL Current LOS: 5 Anticipated DC Date: Planned Disposition: Primary Insurance: [email or web address] EXCHANGE Discharge Planning Comments: CM MET WITH PATIENT VIA PHONE AFTER OBTAINING VERBAL CONSENT AND EXPLAINING ROLE OF CASE MANAGEMENT. STATES SHE PLANS TO GO HOME WHEN DISCHARGED. STATES SHE LIVES ALONE BUT SHE HAS A FRIEND THAT MAY BE COMING TO STAY WITH HER FOR A WHILE. SHE DOES NOT NEED EQUIPMENT AND DOES NOT WANT HH AT THIS TIME. SHE STATES IF SHE DECIDES SHE NEEDS IT SHE WILL LET US KNOW OR CONTACT HER PCP. CM WILL FOLLOW AND ASSIST NEEDED WITH DC PLANNING/NEEDS. Department Administrator: Allison Loyd DCPIA - Discharge Planning Initial Assessment Updated by [id number]: Allison Loyd on 04/25/20 7:04 pm * Is the patient Alert and Oriented? Yes * PCP [facility] IN [place] * Pharmacy [facility] [place] * Preadmission Environment Home Alone * ADLs Independent * Equipment None * Community resources currently utilized None * Can the patient safely return to the preadmission environment? Yes * Has this patient been hospitalized within the prior 30 days at any hospital? No Coverage Notice Reviewer: [id number] - Allison Loyd Notice Issued Date-Time: 05/01/2020 10:09 Notice Type: Patient Choice Letter Notice Delivered To: Patient Relationship to Patient: [employer] Name: Delivery Method: HAND - Hand Delivered Aimee Days: Prior Verbal Notification: Recipient Understood Notice: Yes Recipient Signature: Yes Med Rec Note Co-signed by Attending: Coverage Notice Comment: [facility]. Last DP export: 05/03/20 12:57 p Patient Name: SUMI MG Page [id number] at 0843 All edits/amendments must be made on the electronic document DICTATION DATE: 05/04/2043 PHARMACOEPIDEMIOLOGIST: BISHOP 05/04/20 0843 RPT#: [id number] DC DATE:05/03/20 STATUS: DIS IN [facility] [address] [place] [address] END OF REPORT
== END 2020-05-03 17:23 | disposition home health service (06) | DRG 603 ==
LOC: D.ER 02:34 → D.MS 04:44
PROVIDERS: Emergency Medicine; Family Medicine; Family Medicine Adult Medicine; ADMIT Family Medicine; ATTEND Family Medicine
PROC: 05HD33Z Insertion of Infusion Device into Right Cephalic Vein, Percutaneous Approach (ICD-10-PCS; principal; 2020-04-22)
PROC: B54MZZA Ultrasonography of Right Upper Extremity Veins, Guidance (ICD-10-PCS; 2020-04-22)
DX: L03.116 Cellulitis of left lower limb (principal); Z68.45 Body mass index [BMI] 70 or greater, adult; L03.115 Cellulitis of right lower limb; N30.90 Cystitis, unspecified without hematuria; E66.01 Morbid (severe) obesity due to excess calories; D64.9 Anemia, unspecified